=== PATIENT | female | born 1965 | race Caucasian/White ===

== ENCOUNTER 2018-04-27 17:39 | Outpatient (REF) | payer BC, SELFPAY ==
[2018-04-27 22:17] LABS: ALT 44 U/L (12-78); AST 24 U/L (15-37); Albumin 3.8 g/dL (3.4-5.0); Alkaline Phosphatase 77 U/L (46-116); Anion Gap 8.1 mmol/L (3-11); BUN 16 mg/dL (7-18); Bilirubin, Total 0.5 mg/dL (0.2-1.0); CO2 27.9 mmol/L (21.0-32.0); CREATININE 1.01 mg/dL (0.55-1.02); Calcium 9.3 mg/dL (8.5-10.1); Chloride 104 mmol/L (98-107); Cholesterol 186 mg/dL (50-200); Estimated GFR 57.12 (mL/min/1.73m2); Glucose 118 mg/dL (70-100); HDL Cholesterol 101 mg/dL (40-60); LDL CHOLESTEROL 65 mg/dL (<100); Potassium 4.1 mmol/L (3.5-5.1); Sodium 140 mmol/L (136-145); Total Protein 6.9 g/dL (6.4-8.2); Triglyceride 78 mg/dL (30-150)
== END 2018-04-27 17:59 ==
LOC: NCHCN 17:39
PROVIDERS: PCP Family Medicine; Visit Provider Family Medicine
DX: I10 Essential (primary) hypertension (principal); E11.9 Type 2 diabetes mellitus without complications; Z00.00 Encounter for general adult medical examination without abnormal findings
CPT/HCPCS: 80053; 80061; 83721

== ENCOUNTER 2018-08-18 17:37 | Outpatient (REF) | payer BC, SELFPAY ==
[2018-08-18 22:03] LABS: HCT 42.8 % (36.0-46.0); HGB 14.1 g/dL (12.0-15.5); Mean Corp. HGB Concentration 32.9 g/dL (32.0-36.0); Mean Corpuscular Hemoglobin 29.8 pg (27.0-33.0); Mean Corpuscular Volume 90.5 fL (80-95); Mean Platelet Volume 11.3 fL (8.0-11.0); Platelet Count 200 x1000/uL (130-400); RBC 4.73 m/cumm (4.00-5.20); White Blood Cell Count 6.82 k/cumm (4.4-10.8)
[2018-08-18 22:38] LABS: ALT 26 U/L (12-78); AST 12 U/L (15-37); Albumin 3.6 g/dL (3.4-5.0); Alkaline Phosphatase 74 U/L (46-116); Anion Gap 7.7 mmol/L (3-11); BUN 21 mg/dL (7-18); Bilirubin, Total 0.4 mg/dL (0.2-1.0); CO2 27.3 mmol/L (21.0-32.0); CREATININE 1.02 mg/dL (0.55-1.02); Calcium 9.3 mg/dL (8.5-10.1); Chloride 103 mmol/L (98-107); Estimated GFR 56.26 (mL/min/1.73m2); Glucose 105 mg/dL (70-100); Magnesium 1.7 mg/dL (1.8-2.4); Potassium 4.5 mmol/L (3.5-5.1); Sodium 138 mmol/L (136-145); TSH (W/Ref FT4) 1.17 uIU/mL (0.358-3.74); Total Protein 6.5 g/dL (6.4-8.2); Vitamin B12 353 pg/mL (193-986)
== END 2018-08-18 17:57 ==
LOC: NCHCN 17:37
PROVIDERS: PCP Family Medicine; Visit Provider Family Medicine
DX: R53.83 Other fatigue (principal); R42 Dizziness and giddiness; R25.2 Cramp and spasm
CPT/HCPCS: 80053; 85027; 82607; 83735; 84443

== ENCOUNTER 2019-03-15 14:13 | Outpatient (REF) | payer BC, SELFPAY ==
[2019-03-15 21:41] LABS: ALT 28 U/L (14-59); AST 17 U/L (15-37); Albumin 3.6 g/dL (3.4-5.0); Alkaline Phosphatase 74 U/L (46-116); Bilirubin, Total 0.3 mg/dL (0.2-1.0); Total Protein 6.6 g/dL (6.4-8.2); Vitamin B12 784 pg/mL (193-986)
== END 2019-03-15 14:33 ==
LOC: NCHCN 14:13
PROVIDERS: PCP Family Medicine; Visit Provider Family Medicine
DX: E11.40 Type 2 diabetes mellitus with diabetic neuropathy, unspecified (principal); B35.1 Tinea unguium
CPT/HCPCS: 80076; 82607

== ENCOUNTER 2019-12-13 19:50 | Outpatient (REF) | payer OTHER, SELFPAY ==
[2019-12-13 21:01] LABS: ALT 25 U/L (14-59); AST 12 U/L (15-37); Albumin 3.7 g/dL (3.4-5.0); Alkaline Phosphatase 73 U/L (46-116); BUN 26 mg/dL (7-18); Bilirubin, Total 0.2 mg/dL (0.2-1.0); CREATININE 0.79 mg/dL (0.55-1.02); Calcium 9.1 mg/dL (8.5-10.1); Chloride 107 mmol/L (98-107); Glucose 122 mg/dL (74-106); Potassium 4.4 mmol/L (3.5-5.1); Sodium 139 mmol/L (136-145); Total Protein 6.5 g/dL (6.4-8.2)
[2019-12-13 21:06] LABS: Hemoglobin A1C 6.1 % (<5.7)
[2019-12-13 22:13] LABS: COMMENT (LAB VIEW ONLY) 86.35 mg/dL; Microalb ug/mg Crea 3.8 ug/mg Cr
== END 2019-12-13 20:10 ==
LOC: NCHCN 19:50
PROVIDERS: PCP Family Medicine; Visit Provider Family Medicine
DX: E11.9 Type 2 diabetes mellitus without complications (principal); I10 Essential (primary) hypertension
CPT/HCPCS: 80053; 82043; 82570; 83036

== ENCOUNTER 2020-01-26 14:05 | Outpatient (REF) | payer OTHER, SELFPAY ==
[2020-01-31 21:17] LABS: Patient Race White; SARS-CoV-2 RNA Undetected (Undetected); SARS-CoV-2 Specimen Source Nasal
== END 2020-01-26 14:25 ==
LOC: NCHCN 14:05
PROVIDERS: PCP Family Medicine; Visit Provider Family Medicine
DX: Z20.828 Contact with and (suspected) exposure to other viral communicable diseases (principal)
CPT/HCPCS: U0003

== ENCOUNTER 2020-12-14 15:10 | Outpatient (REF) | payer OTHER, SELFPAY ==
[2020-12-14 18:01] LABS: ALT 24 U/L (14-59); AST 10 U/L (15-37); Albumin 3.4 g/dL (3.4-5.0); Alkaline Phosphatase 69 U/L (46-116); Anion Gap 8.3 mmol/L (3-11); BUN 24 mg/dL (7-18); Bilirubin, Total 0.2 mg/dL (0.2-1.0); CO2 26.7 mmol/L (21.0-32.0); CREATININE 0.9 mg/dL (0.55-1.02); Calcium 8.6 mg/dL (8.5-10.1); Calculated LDL 133 mg/dL (<100); Chloride 107 mmol/L (98-107); Cholesterol 222 mg/dL (<200); Glucose 149 mg/dL (74-106); HDL Cholesterol 65 mg/dL (40-60); Hemoglobin A1C 7.6 % (<5.7); Potassium 4.2 mmol/L (3.5-5.1); Sodium 142 mmol/L (136-145); Total Protein 6.3 g/dL (6.4-8.2); Triglyceride 120 mg/dL (<150)
== END 2020-12-14 15:11 | disposition home or self-care (01) ==
LOC: NCHCN 15:10
PROVIDERS: PCP Family Medicine; Visit Provider Family Medicine
DX: E11.40 Type 2 diabetes mellitus with diabetic neuropathy, unspecified (principal); B35.1 Tinea unguium; F43.21 Adjustment disorder with depressed mood; E66.01 Morbid (severe) obesity due to excess calories; Z00.00 Encounter for general adult medical examination without abnormal findings
CPT/HCPCS: 80053; 80061; 83036

== ENCOUNTER 2021-04-05 09:00 | Outpatient (REF) | payer BC, SELFPAY ==
[2021-04-05 16:21] LABS: COMMENT (LAB VIEW ONLY) 345.38 mg/dL; Microalb ug/mg Crea 7.8 ug/mg Cr
== END 2021-04-05 09:01 | disposition home or self-care (01) ==
LOC: LBN 09:00
PROVIDERS: PCP Family Medicine; Visit Provider Family Medicine
DX: E11.9 Type 2 diabetes mellitus without complications (principal)
CPT/HCPCS: 82043; 82570

== ENCOUNTER 2021-04-05 15:01 | Outpatient (REF) | payer BC, SELFPAY ==
--- NOTE | 2021-04-05 08:30 | PAPFT_PTH ---
PATIENT: Stephanie Hemphill LOC: [facility] U#:[id number] AGE/SX: 55/F ROOM: RE04/05/[address]: Yeny Leal : 1965 BED: DIS: 04/05/2021 SPEC #: [id number] RECD: 04/05/21 16:47 STATUS: AIYANA COUCH #: [id number] JASBIR: 04/05/21 08:[address]: Yeny Leal DEPT: COUNT INCLUDES THE [facility] Cytology RECD BY: Gunjan Juan Tissues: 1 - CX/ENDOCX FOR PAP SMEARS Procedures: PAP THIN PREP/[facility] Screening HPV DNA PROBE Comments: [id number]
== END 2021-04-05 15:02 | disposition home or self-care (01) ==
LOC: NCHCN 15:01
PROVIDERS: PCP Family Medicine; Visit Provider Family Medicine
DX: Z12.4 Encounter for screening for malignant neoplasm of cervix (principal); Z11.51 Encounter for screening for human papillomavirus (HPV); N89.8 Other specified noninflammatory disorders of vagina
CPT/HCPCS: 88142; 87624

== ENCOUNTER 2022-10-23 18:43 | Outpatient (REF) | payer BC, SELFPAY ==
[2022-10-23 16:16] LABS: Hemoglobin A1C 6.5 % (<5.7)
[2022-10-23 16:41] LABS: COMMENT (LAB VIEW ONLY) 212.14 mg/dL; Microalb ug/mg Crea 4.1 ug/mg Cr
[2022-10-23 16:55] LABS: ALT 22 U/L (14-59); AST 14 U/L (15-37); Albumin 3.6 g/dL (3.4-5.0); Alkaline Phosphatase 65 U/L (46-116); Anion Gap 9.4 mmol/L (3-11); BUN 22 mg/dL (7-18); Bilirubin, Total 0.5 mg/dL (0.2-1.0); CO2 24.6 mmol/L (21.0-32.0); Calcium 9.4 mg/dL (8.5-10.1); Calculated LDL 116 mg/dL (<100); Chloride 105 mmol/L (98-107); Cholesterol 230 mg/dL (<200); Glucose 162 mg/dL (74-106); HDL Cholesterol 76 mg/dL (40-60); Potassium 4.2 mmol/L (3.5-5.1); Sodium 139 mmol/L (136-145); Total Protein 6.8 g/dL (6.4-8.2); Triglyceride 194 mg/dL (<150)
== END 2022-10-23 18:44 | disposition home or self-care (01) ==
LOC: NCHCN 18:43
PROVIDERS: PCP Family Medicine; Visit Provider Family Medicine
DX: E11.9 Type 2 diabetes mellitus without complications (principal); I10 Essential (primary) hypertension; Z13.220 Encounter for screening for lipoid disorders; Z00.00 Encounter for general adult medical examination without abnormal findings
CPT/HCPCS: 80053; 80061; 82043; 82570; 83036

== ENCOUNTER 2023-06-09 22:10 | Outpatient (REF) | payer BC, SELFPAY ==
[2023-06-09 21:39] LABS: FREE T4 1.06 ng/dL (0.76-1.46); TSH 1.23 uIU/Ml (0.36-3.74)
== END 2023-06-09 22:11 | disposition home or self-care (01) ==
LOC: NCHCN 22:10
PROVIDERS: PCP Family Medicine; Referring Provider Family Medicine; Visit Provider Family Medicine
DX: E66.01 Morbid (severe) obesity due to excess calories (principal)
CPT/HCPCS: 84439; 84443

== ENCOUNTER 2023-09-15 17:03 | Outpatient (REF) | payer BC, SELFPAY ==
[2023-09-15 21:51] LABS: ALT 33 U/L (14-59); AST 19 U/L (15-37); Albumin 3.5 g/dL (3.4-5.0); Alkaline Phosphatase 79 U/L (46-116); Anion Gap 10.1 mmol/L (3-11); BUN 22 mg/dL (7-18); Bilirubin, Total 0.32 mg/dL (0.2-1.0); CO2 24.9 mmol/L (21.0-32.0); Calcium 9.5 mg/dL (8.5-10.1); Calculated LDL 44 mg/dL (<100); Chloride 107 mmol/L (98-107); Cholesterol 148 mg/dL (<200); Glucose 183 mg/dL (74-106); HDL Cholesterol 70 mg/dL (40-60); Potassium 4.3 mmol/L (3.5-5.1); Sodium 142 mmol/L (136-145); Total Protein 7.1 g/dL (6.4-8.2); Triglyceride 171 mg/dL (<150)
[2023-09-15 21:56] LABS: Estimated GFR 64.49 (mL/min/1.73m2)
[2023-09-15 22:02] LABS: Hemoglobin A1C 6.3 % (<5.7)
[2023-09-15 22:13] LABS: COMMENT (LAB VIEW ONLY) 343.16 mg/dL; Microalb ug/mg Crea 2.5 ug/mg Cr
== END 2023-09-15 17:04 | disposition home or self-care (01) ==
LOC: NCHCN 17:03
PROVIDERS: PCP Family Medicine; Visit Provider Family Medicine
DX: E11.9 Type 2 diabetes mellitus without complications (principal); E78.5 Hyperlipidemia, unspecified
CPT/HCPCS: 80053; 80061; 82043; 82570; 83036

== ENCOUNTER 2024-04-13 17:38 | Outpatient (REF) | payer OTHER, SELFPAY ==
[2024-04-13 21:50] LABS: ALT 25 U/L (14-59); AST 17 U/L (15-37); Albumin 3.8 g/dL (3.4-5.0); Alkaline Phosphatase 77 U/L (46-116); Anion Gap 5.9 mmol/L (3-11); BUN 19 mg/dL (7-18); Bilirubin, Total 0.41 mg/dL (0.2-1.0); CO2 28.1 mmol/L (21.0-32.0); CREATININE 0.9 mg/dL (0.55-1.02); Calcium 9.4 mg/dL (8.5-10.1); Chloride 105 mmol/L (98-107); Estimated GFR 73.19 (mL/min/1.73m2); Glucose 89 mg/dL (74-106); Potassium 4.5 mmol/L (3.5-5.1); Sodium 139 mmol/L (136-145); Total Protein 6.9 g/dL (6.4-8.2); Uric Acid 4.9 mg/dL (2.6-6.0)
[2024-04-13 21:54] LABS: C-Reactive Protein < 0.50 mg/dL (<or=0.5)
[2024-04-13 21:56] LABS: Abs Immature Grans 0.02 10^3/uL (0.0-0.06); Absolute Basophil Count 0.06 10^3/uL (0.0-0.2); Absolute Eosinophil Count 0.25 10^3/uL (0.0-0.7); Absolute Lymphocyte Count 2.29 10^3/uL (1.2-3.4); Absolute Monocyte Count 0.54 10^3/uL (0.1-0.8); Absolute Neutrophil Count 4.17 10^3/uL (1.2-6.7); Basophils % 0.8 %; Eosinophils % 3.4 %; Immature Grans % 0.3 %; Lymphocytes % 31.2 %; MCH 29.1 pg (27.0-33.0); MCHC 32.6 % (32.0-36.0); MCV 89 fL (80-95); MPV 11.1 fL (8.0-11.0); Monocytes % 7.4 %; Neutrophils % 56.9 %; Platelet Count 211 10^3/uL (130-400); RBC 4.81 10^6/uL (3.93-5.22); RDW 13.4 % (11.7-14.6); RDW-SD 43.9 fL; WBC 7.33 10^3/uL (4.4-10.8)
[2024-04-13 22:02] LABS: ESR 4 mm/hr (0-30)
== END 2024-04-13 17:39 | disposition home or self-care (01) ==
LOC: NCHCN 17:38
PROVIDERS: PCP Family Medicine; Visit Provider Nurse Practitioner Family
DX: M79.672 Pain in left foot (principal)
CPT/HCPCS: 80053; 85652; 84550; 85025; 86140

== ENCOUNTER 2024-10-04 12:25 | Outpatient (REF) | payer OTHER, SELFPAY ==
[2024-10-04 15:08] LABS: HCT 41.9 % (36.0-46.0); HGB 13.7 g/dL (11.2-15.7); MCH 29.4 pg (27.0-33.0); MCHC 32.7 % (32.0-36.0); MCV 90 fL (80-95); MPV 10.6 fL (8.0-11.0); Platelet Count 191 10^3/uL (130-400); RBC 4.66 10^6/uL (3.93-5.22); RDW 13.2 % (11.7-14.6); RDW-SD 43.4 fL; WBC 6.25 10^3/uL (4.4-10.8)
[2024-10-04 15:24] LABS: ALT 28 U/L (14-59); AST 15 U/L (15-37); Albumin 3.6 g/dL (3.4-5.0); Alkaline Phosphatase 77 U/L (46-116); Anion Gap 8.1 mmol/L (3-11); BUN 29 mg/dL (7-18); Bilirubin, Total 0.3 mg/dL (0.2-1.0); CO2 24.9 mmol/L (21.0-32.0); Calcium 9.1 mg/dL (8.5-10.1); Calculated LDL 85 mg/dL (<100); Chloride 107 mmol/L (98-107); Cholesterol 188 mg/dL (<200); Estimated GFR 83.78 (mL/min/1.73m2); Glucose 111 mg/dL (74-106); HDL Cholesterol 90 mg/dL (>or=50); Potassium 4.5 mmol/L (3.5-5.1); Sodium 140 mmol/L (136-145); Total Protein 6.6 g/dL (6.4-8.2); Triglyceride 66 mg/dL (<150)
[2024-10-04 15:30] LABS: Hemoglobin A1C 5.5 % (<5.7)
== END 2024-10-04 12:26 | disposition home or self-care (01) ==
LOC: NCHCN 12:25
PROVIDERS: PCP Family Medicine; Visit Provider Family Medicine
DX: E11.9 Type 2 diabetes mellitus without complications (principal); Z13.220 Encounter for screening for lipoid disorders; Z00.00 Encounter for general adult medical examination without abnormal findings; I10 Essential (primary) hypertension
CPT/HCPCS: 80053; 80061; 85027; 83036

== ENCOUNTER 2025-01-20 14:09 | Outpatient (REF) | payer OTHER, SELFPAY ==
[2025-01-20 16:22] LABS: Microalb ug/mg Crea 12.3 ug/mg Cr
== END 2025-01-20 14:10 | disposition home or self-care (01) ==
LOC: NCHCN 14:09
PROVIDERS: PCP Family Medicine; Visit Provider Family Medicine
DX: E11.9 Type 2 diabetes mellitus without complications (principal)
CPT/HCPCS: 82043; 82570